=== PATIENT | male | born 1985 | race Caucasian/White ===

== ENCOUNTER 2018-08-13 09:07 | Day surgery (SDC) | payer BC, SELFPAY ==
[2018-08-13 09:37] VITALS: BP 154/95; PULSE 93; RESP 18; TEMP 35.7; O2SAT 97
[2018-08-13] MEDS: Lactated Ringers 1,000 ML 80 ML IV (09:57)
--- NOTE | 2018-08-13 11:14 | BOWEL_PTH ---
PATIENT: Chava Griffin LOC: [facility] U#:[id number] AGE/SX: 32/M ROOM: RE08/13/[address]: Tere Lyles : 1985 BED: DIS: 08/13/2018 SPEC #: [id number] RECD: 08/13/18 12:58 STATUS: UVALDO REGregg #: [id number] PAVAN: 08/13/18 11:[address]: Tere Lyles DEPT: Surgical Specimen RECD BY: Lucia Simmons ENTERED: 08/13/18 12:59 SP TYPE: Bowel OTHR DR: Tita Arreguin Tissues: 1 - BIOPSY BOWEL 2 - BIOPSY BOWEL 3 - BIOPSY BOWEL 4 - BIOPSY BOWEL 5 - BIOPSY BOWEL Procedures: GROSS AND MICRO LEVEL 4 Comments: [id number]
--- NOTE | 2018-08-13 11:23 | ENDO_ITS ---
Date of service: 08/13/18 Time of Service: 11:20 Endoscopy Report DATE OF PROCEDURE: 08/13/18 PRE-OP DIAGNOSIS: gerd POST-OP DIAGNOSIS: other (gastritis) PROCEDURE: egd w/ bx SURGEON: Tere Lyles ANESTHESIA: GETA ESTIMATED BLOOD LOSS: 2 PATHOLOGY: other COMPLICATIONS: None DISPOSITION: same day PROCEDURE DESCRIPTION: After informed consent was obtained the patient was take to the procedure room and placed in a supine position. Monitors were applied and a time out was done. The patients name, date of , procedure type, allergies to medications and metal in their body was reviewed. A bite block was placed and the patient was sedated. Once sedated and comfortable the gastroscope was advanced through the oropharynx which was grossly normal into the esophagus. The proximal and mid-esophagus were nl. In the distal esophagus there was no noted. The scope was advanced into the stomach and through the pylorus into the 3rd portion of the duodenum. The duodenum was noted to be nl. Biopsies were done. The scope was retracted back into the stomach and biopsies were done to rule out H. pylori. There were no ulcers. The scope was retroflexed. The cardia and fundus were noted to be normal. There is moderate redness at the antrum in striped fashion. bx were taken of antrum and greater curvature. There small a hiatal hernia noted. The scope was retracted back into the esophagus and biopsies were done of the GE junction to rule out Ivy's. The Z line was regular. The GE junction was at 40 cm. The scope was removed and the patient was woken up and taken back to [facility] in stable condition. Follow up: 3-4 wks
--- NOTE | 2018-08-13 11:23 | W.PM.DSUDISC ---
Discharge Plan Disposition Patient Disposition: HOME Condition: Good Discharge Details Reason For Visit: EGD Attending Provider: Tere Lyles Primary Care Provider: Tita Arreguin Home Meds and New Rx's Prescriptions: Continued quetiapine [Seroquel XR] 300 mg tablet extended release 24 hr 45 mg PO HS RF: 0 fluticasone propionate [Allergy Relief (fluticasone)] 50 mcg/actuation spray,suspension 2 spray TITO DAILY RF: 0 methylphenidate HCl 20 mg tablet 20 mg PO QID RF: 0 loratadine 10 mg capsule 10 mg PO DAILY RF: 0 pantoprazole [Protonix] 40 mg tablet,delayed release (DR/EC) 40 mg PO DAILY Qty: 30 RF: 11 sucralfate 1 gram tablet 1 gm PO QACHS Qty: 120 RF: 6 Discharge Instructions Additional Instructions: Findings:cont protonix and carafate Continue with lifestyle modifications: no alcohol, tobacco products, Aspirin or NSAID's (ibuprofen, Motrin, Naprosyn, aleve, etc), soda pop/any carbonated beverages, caffeine (including tea & chocolate), and acidic foods, (tomatoes, citrus, onions, peppermints) spicy or fried/fatty foods. Do not lie down for 30 minutes after eating, and do not eat 2 hours prior to bedtime. Avoid wearing tight fitting clothing/ belts Follow up: 3 wks w/ Dr. Lyles Please call if you develop: fevers >101.5 Nausea or Vomiting Abdominal pain that is not transient DAY SURGERY UNIT POST COLONOSCOPY INSTRUCTIONS 1. Because there will be medication in your system for the next 24 hours, you may feel a little sleepy. Your coordination will be affected. Therefore: a. Do not drive or operate dangerous equipment for 24 hours. b. Do not drink alcohol beverages for 24 hours (not even beer). c. Plan to go home and rest for the day. 2. Generally there are no restrictions on your activity after a day or so has gone by, but you may feel a bit fatigued for a few days. 3 After you arrive home you may have a light meal and return to a normal diet as you can tolerate it without feeling sick to your stomach. 4. After surgery, you may feel pain or discomfort. This should be only transient, but if it persists please contact your doctor. 5. If there are any questions regarding the findings of your procedure, please feel free to contact your doctor. 6. If you are unable to contact your doctor with a problem, contact the hospital at [phone]. 7. Continue all your regular medications unless directed otherwise. I understand the above instructions and have no questions. Signature of Patient or Responsible Adult Escort Date/Time Name of Responsible Adult Escort Signature of Nurse Date/Time Activity:: no lifting over 10#'s or strnuous acitvity x24 hrs Diet:: sm light meals today Discharge Orders Discharge Orders: Discharge Order (Routine); Ordered 08/13/18 Ordered By: Tere Lyles Discharge Data Discharge Date/Time-TO BE ENTERED AT DEPARTURE: 08/13/18 12:00 DS: Diagnosis Discharge Diagnosis (1) GERD (gastroesophageal reflux disease): Status: Chronic (2) Gastritis: Status: Acute
[2018-08-13 11:50] VITALS: BP 123/70; PULSE 78; RESP 18; TEMP 36.3; O2SAT 96
== END 2018-08-13 12:00 | disposition home or self-care (01) ==
PROVIDERS: PCP Internal Medicine; Visit Provider Surgery
PROC: 0DJ68ZZ Inspection of Stomach, Via Natural or Artificial Opening Endoscopic (ICD-10-PCS; CPT 43235; principal; 2018-08-13 10:15)
DX: K21.0 Gastro-esophageal reflux disease with esophagitis (principal); K31.89 Other diseases of stomach and duodenum; I10 Essential (primary) hypertension; K44.9 Diaphragmatic hernia without obstruction or gangrene
CPT/HCPCS: 43239; 88305

== ENCOUNTER 2020-08-01 12:09 | Day surgery (SDC) | payer BC, SELFPAY ==
--- NOTE | 2020-08-01 06:54 | W.COLOREPORT ---
Date of service: 08/01/20 Time of Service: 14:31 Colonoscopy Report Date of procedure: 08/01/20 Pre-op diagnosis general: Hx of colon polyps Post-op diagnosis procedure note: same (right sided diverticulosis) Procedure: Colonoscopy with polyepctomy Surgeon: Aleksandra Galicia Anesthesia Type: General:No Airway (ASA 2/Stewart Higgins, SARI) Estimated blood loss (mL): 5 Pathology: other (Transverse polyps x2) Complications: None Disposition: same day Indications: The patient is here for Colonoscopy pre-op. His last screening was in 2015 and was remarkable for Tubular adenomatous polyps x 2. He has no family history of colon cancer. He has not had any bowel habit changes. -Discussed colonoscopy bowel prep as well as the procedure. Discussed possible complications of the procedure to include bleeding, pain, perforation, missed small lesion/polyp, sore throat, aspiration and adverse reaction to the medications. Questions were answered to patient?s satisfaction. No guarantees were implied or given. Prep: Miralax/Dulcolax Procedure Start Time: 13:33 Procedure End Time: 13:59 Retraction Time: 21 minutes Findings: 2 small polyps removed Procedure Description: After informed consent was obtained the patient was taken to the procedure room and placed in a left decubitous position. Monitors were applied and a time out was done. The patients name, date of , procedure, allergies to medications and metal in their body was reviewed. The patient was then sedated. Once sedated and comfortable a rectal exam was done. External exam was normal. Internal exam revealed a normal sphincter tone and no palpable masses. Prostate felt large. The scope was then introduced and retro-flexed. No internal hemorrhoids, polyps or masses were identified on retro-flexion. The scope was then advanced to the cecum without difficulty. The ileocecal vlave and appendiceal orifice were identified. The prep was adequate. The scope was then slowly retracted over 21 minutes back into the rectum. Polyps were removed with cold forceps in the Transverse colon. There was moderate right sided diverticulosis noted. The scope was removed and the patient was woken up and taken back to Same day surgery in stable condition. The patient tolerated the procedure well and there were no immediate complications. Follow up: The patient should follow up in 5 years unless they develop changes in bowel habits or other new gastrointestinal complaints.
--- NOTE | 2020-08-01 06:57 | W.PM.DSUDISC ---
Discharge Plan Disposition Patient Disposition: HOME Condition: Good Discharge Details Reason For Visit: Hx of colon polyps Attending Provider: Aleksandra Galicia Primary Care Provider: Tita Arreguin Home Meds and New Rx's Prescriptions: Continued fluticasone propionate [Allergy Relief (fluticasone)] 50 mcg/actuation spray,suspension 2 spray TITO DAILY RF: 0 loratadine 10 mg capsule 10 mg PO DAILY RF: 0 pantoprazole [Protonix] 40 mg tablet,delayed release (DR/EC) 40 mg PO DAILY Qty: 30 RF: 11 methylphenidate HCl [Ritalin] 20 mg tablet 20 mg PO TID RF: 0 folic acid 1 mg tablet 3 mg PO DAILY RF: 0 lisinopril 10 mg tablet 10 mg PO DAILY RF: 0 imiquimod 5 % cream in packet 1 applic topical .3xw RF: 0 lansoprazole 30 mg capsule,delayed release(DR/EC) 30 mg PO DAILY RF: 0 methylphenidate HCl 20 mg tablet extended release 20 mg PO DAILY RF: 0 Discontinued bisacodyl [Dulcolax (bisacodyl)] 5 mg tablet,delayed release (DR/EC) 5 mg PO ONCE Qty: 4 RF: 0 polyethylene glycol 3350 17 gram/dose powder 238 g PO ONCE Qty: 238 RF: 0 Discharge Instructions Instructions: Diverticulosis (DC), Colorectal Polyps (DC) Additional Instructions: Findings: 2 polyps diverticulosis Follow up: 5 years Please call if you develop: fevers >101.5 Nausea or Vomiting Abdominal pain that is not transient Rectal bleeding that is more then a tbsp A hard abdomen and inability to pass gas DAY SURGERY UNIT POST ENDOSCOPY INSTRUCTIONS Instructions for everyone who is given Anesthesia: For your safety, please do the following for the next 24 Hours: a. Do not drive or operate dangerous equipment b. Do not drink alcohol beverages or use any recreational drugs for the first 24 hours or while taking pain medications. The medications in your body may have a reaction that can be dangerous. c. Do not make any important decisions or sign any important papers 1. Generally there are no restrictions on your activity after a day or so has gone by, but you may feel a bit fatigued for a few days. 2. After you arrive home you may have a light meal and return to a normal diet as you can tolerate it without feeling sick to your stomach. 3. After surgery, you may feel pain or discomfort. This should be only transient, but if it persists please contact your doctor. 4. If there are any questions regarding the findings of your procedure, please feel free to contact your doctor. 6. If you are unable to contact your doctor with a problem, contact the hospital at [phone]. 7. Continue all your regular medications unless directed otherwise. I understand the above instructions and have no questions. Signature of Patient or Responsible Adult Escort Date/Time Name of Responsible Adult Escort Signature of Nurse Date/Time Activity:: Activity as Tolerated Diet:: High Fiber diet Discharge Orders Discharge Orders: Discharge Order (Routine); Ordered 08/01/20 Ordered By: Aleksandra Galicia
[2020-08-01 12:31] VITALS: BP 142/105; PULSE 93; RESP 18; TEMP 36.5; O2SAT 96
--- NOTE | 2020-08-01 12:44 | ANES.PREOP_ITS ---
General Info Date of Service Date Performed: 08/01/20 Height: 6 ft 4 in Weight: 153.9 kg Body Mass Index (BMI): 41.3 Surgical Procedure: Operation Date: 08/01/20 13:35 Proposed Procedures Side Surgeon p Colonoscopy Aleksandra Galicia MD Meds Allergies and Home Medications Allergies Allergy/AdvReac Type Severity Reaction Status Date / Time No Known Allergies Allergy Verified 08/01/20 12:35 Home Medication Medication Instructions Recorded fluticasone propionate 50 2 spray TITO DAILY 07/28/18 mcg/actuation nasal spray,suspension loratadine 10 mg capsule 10 mg PO DAILY 07/28/18 pantoprazole 40 mg tablet,delayed 40 mg PO DAILY #30 tab 08/02/18 release folic acid 1 mg tablet 3 mg PO DAILY tab 04/27/20 imiquimod 5 % topical cream packet 1 applic TOPICAL .3xw ea 04/27/20 lansoprazole 30 mg capsule,delayed 30 mg PO DAILY 04/27/20 release lisinopril 10 mg tablet 10 mg PO DAILY 04/27/20 methylphenidate HCl 20 mg tablet 20 mg PO TID 04/27/20 methylphenidate HCl 20 mg PO DAILY 07/30/20 Current Visit Medications: Current Medications Generic Name Dose Route Start Last Admin Trade Name Freq PRN Reason Stop Dose Admin Hyoscyamine Sulfate 0.125 mg 08/01/20 06:59 Hyoscyamine 0.125 Mg Sl/Oral/Chew SL DIRECTED PRN Ringer's Solution 1,000 mls @ 80 mls/hr 08/01/20 06:00 IV 08/30/20 23:59 INFUSION [facility] IV Miscellaneous Supplies 1 each 08/01/20 06:00 Iv Access IV 08/30/20 23:59 DIRECTED CONSTANZA Ondansetron HCl 4 mg 08/01/20 06:59 Ondansetron 4 Mg/2 Ml Vial IVP Q4H PRN PRN Nausea / Vomiting Sodium Chloride 0 ml 08/01/20 06:00 Normal Saline Flush 10 Ml Syr IV 08/30/20 23:59 PRN PRN Sodium Chloride 0 ml 08/01/20 06:00 Normal Saline 10 Ml Vial IJ 08/30/20 23:59 DIRECTED PRN Sterile Water 0 ml 08/01/20 06:00 Water,Injection,Sterile 10 Ml Vial IJ 08/30/20 23:59 DIRECTED PRN PFSH Active Problems Active Problems: Problem Status Onset Code History of adenomatous polyp of colon Z86.010 Hypogonadism in male E29.1 Condyloma acuminata A63.0 Screening for colon cancer Z12.11 Gastritis K29.70 GERD (gastroesophageal reflux disease) K21.9 Medical History Medical History Abdominal pain post prandial Allergic rhinitis Chronic GERD CTS (carpal tunnel syndrome) Gastritis EGD 08/13/[address] Tere Lyles, [facility], gastritis, started protonix and carafate. Repeat EGD as needed. mg GERD (gastroesophageal reflux disease) History of fracture ORIF lt hand HTN (hypertension) Hyperglycemia Hyperlipidemia Neuropathy Restless leg Surgical History Surgical History History of colonoscopy History of recent maxillofacial surgery metal plate in jaw Personal history of spine surgery Tobacco Smoking/Tobacco Use Status: Current every day Tobacco Type: cigarettes Smoking packs per day: 1 Years smoked: 5 Alcohol Alcohol Intake: current Alcohol intake frequency: 3 or more drinks per day Alcohol type: wine and hard liquor Details: Consumes a little less than a fifth 5 days/wk after work Substance Use Substance use: Never Substance use type: does not use Vital Signs and Lab Results Vital Signs Most Recent Vital Signs in EMR: Most Recent Vital Signs Temp Pulse Resp BP Pulse Ox 36.5 C 93 H 18 142/105 H 96 08/01/20 12:31 08/01/20 12:31 08/01/20 12:31 08/01/20 12:31 08/01/20 12:31 Lab Results Blood Type / Crossmatch: No Data to Display Complete Blood Count: No Data to Display Complete Metabolic Panel: No Data to Display Liver Function Panel: No Data to Display Coagulation Panel: No Data to Display Cardiac Panel: No Data to Display Arterial Blood Gas: No Data to Display Venous Blood Gas: No Data to Display Pancreas Panel: No Data to Display Thyroid Panel: No Data to Display Infectious Disease: No Data to Display Blood Cultures: No Data to Display Toxicology Panel: No Data to Display Anesthesia Assessment and Plan Anesthesia History Personal History: No History of Anesthesia Complications Family History: No Family History of Anesthesia Complications Exercise Tolerance Exercise Tolerance: Metabolic Equivalents>4 Pertinent Negatives Pertinent Negatives: No Symptoms of GERD Cardiac & Pulmonary Exam Cardiac Exam: Normal S1/S2 Heart Sounds Pulmonary Exam: Clear Bilateral Breath Sounds Airway Exam Known Difficult Airway: No Mallampati Class: 2 Mouth Opening: Normal (> 3cm) Thyromental Distance: Greater than 3 cm Neck Range of Motion: Full ROM Neck Circumference: Thick Teeth Condition: Normal Dentition ASA Classification ASA Score: ASA 2 Emergency Case?: No NPO Status NPO Status: NPO Clears >2 hours, Solids >8 hours Anesthesia Plan Anesthesia Technique: General Anesthesia Airway Planned: Natural Airway Monitors Used: Standard Monitors
[2020-08-01] MEDS: Lactated Ringers 1,000 ML 80 ML IV (13:15)
--- NOTE | 2020-08-01 13:48 | BOWEL_PTH ---
PATIENT: Chava Griffin LOC: [facility] U#:[id number] AGE/SX: 34/M ROOM: RE08/01/[address]: Aleksandra Galicia MD : 1985 BED: DIS: 08/01/2020 SPEC #: [id number] RECD: 08/01/20 17:37 STATUS: UVALDO REQ #: [id number] PAVAN: 08/01/20 13:[address]: Aleksandra Galicia DEPT: Surgical Specimen RECD BY: Liza Grijalva ENTERED: 08/01/20 17:37 SP TYPE: Bowel OTHR DR: Tita Arreguin Tissues: 1 - BIOPSY BOWEL Procedures: GROSS AND MICRO LEVEL 4 Comments: [id number]
[2020-08-01 14:07] VITALS: BP 133/86; PULSE 83; RESP 18; TEMP 36.2; O2SAT 94
--- NOTE | 2020-08-01 14:07 | W.ANESPOSTOP ---
Postoperative Evaluation Date, Time and Location Date Performed: 08/01/20 Time Performed: 14:10 Patient Location: Day Surgery Unit Vital Signs Most Recent Imported Vital Signs: Most Recent Vital Signs Temp Pulse Resp BP Pulse Ox 36.5 C 93 H 18 142/105 H 96 08/01/20 12:31 08/01/20 12:31 08/01/20 12:31 08/01/20 12:31 08/01/20 12:31 Most Recent Manually Entered Vital Signs: Adult Blood Pressure: 133/86 Heart Rate: 83 Respirations: 12 Oxygen Saturation (%): 97 Temperature (C): 36.3 C Pain Score (0-10 Scale): 0 Pain Score Most Recent Pain Score: Most Recent Pain Score Pain Level 0 08/01/20 12:31 Assessment Mental Status: Awake (Alert & Oriented to Patient Baseline) Airway and Respiratory Function: Patent airway with normal (patient baseline) respiratory exam Cardiovascular Function: Hemodynamically Stable Hydration Status: Adequately Hydrated Nausea & Vomiting: No Nausea or Vomiting Pain: Pt. Denies Any Pain Peripheral Nerve Block: Patient did not receive a nerve block Teaching Patient Teaching: Discussed Safe Use of Pain Medication Given Likely or Known MOHSEN and Discussed the importance of using CPAP/BiPAP during any sleep period
[2020-08-01 14:12] VITALS: BP 133/86; PULSE 83; RESP 12; TEMPC 36.3; O2SAT 97; BMI 41.3
[2020-08-01 14:35] VITALS: BP 135/77; PULSE 74; RESP 18; TEMP 36.3; O2SAT 95
== END 2020-08-01 15:00 | disposition home or self-care (01) ==
LOC: SUR 12:09
PROVIDERS: PCP Internal Medicine; Visit Provider Surgery
PROC: 0DJD8ZZ Inspection of Lower Intestinal Tract, Via Natural or Artificial Opening Endoscopic (ICD-10-PCS; CPT 45378; principal; 2020-08-01 13:30)
DX: Z12.11 Encounter for screening for malignant neoplasm of colon (principal); D12.3 Benign neoplasm of transverse colon; Z86.010 Personal history of colon polyps; K21.9 Gastro-esophageal reflux disease without esophagitis; I10 Essential (primary) hypertension; F17.210 Nicotine dependence, cigarettes, uncomplicated; K57.30 Diverticulosis of large intestine without perforation or abscess without bleeding
CPT/HCPCS: 45380; 88305; J2001

== ENCOUNTER 2022-08-15 08:27 | Day surgery (SDC) | payer BC, SELFPAY ==
[2022-08-15] VITALS (11 sets, daily range): BP systolic 129–171; BP diastolic 57–102; PULSE 61–75; RESP 13–24; TEMP 36.3–36.7; O2SAT 91–98; BMI 39.9
--- NOTE | 2022-08-15 07:11 | W.PM.PROGNOT ---
Date of Service Date of service: 08/15/22 Time of Service: 10:36 Assessment and Plan Assessment and plan (1) Biliary dyskinesia: Status: Acute Assessment and plan: Monika is here today for laparoscopic cholecystectomy for biliary dyskinesia. He is doing well. We reviewed the risks, benefits and complications of the procedure again. He has no questions about the complications. He has a good understanding of the procedure and the complications. He wishes to proceed with laparoscopic cholecystectomy. Risks, benefits, complications were reviewed with the patient in the office. Complications include but are not limited to bleeding, infection, injury to stomach, small bowel and large bowel, injury to the pancreas, injury to the common bile duct necessitating drainage and referral to tertiary center for repair, bile leak, adverse reactions to the medications, complications of intubation including a sore throat or injury to the uvula, [place], stroke and even . Questions were entertained and answered to her satisfaction and she wished to proceed. No guarantees were given or implied. Seed with laparoscopic cholecystectomy possible open possible intraoperative cholangiogram. Subjective Subjective Interval history since last seen: Chava is in same-day surgery today for a laparoscopic cholecystectomy. He is doing well except that he is nervous. He has had no new symptoms since I saw him in the office last week. He has not had any nausea or vomiting today. No cold symptoms. Exam Const General: cooperative, comfortable and no acute distress [facility] Head: normocephalic and atraumatic Resp Effort & Inspection: normal respiratory effort Auscultation: clear to auscultation bilaterally Cardio Rate: regular rate Rhythm: regular rhythm GI Inspection: normal to inspection and obesity Palpation: soft and nontender Time Spent with Patient Time Spent with Patient: <25 minutes Time was spent: counseling the patient
--- NOTE | 2022-08-15 07:18 | W.PM.OP ---
Date of service: 08/15/22 Time of Service: 12:20 Operative Note Operative Note DATE OF PROCEDURE: 08/15/22 PRE-OP DIAGNOSIS: Biliary Dyskinesia POST-OP DIAGNOSIS: same PROCEDURE: lap. Lupe SURGEON: Aleksandra Galicia GAS WELDING MACHINE OPERATOR: nAdrew Trammell ANESTHESIA TYPE: Local By Surgeon and General LMA/ETT Refer to Anesthesia Record ESTIMATED BLOOD LOSS: 25 PATHOLOGY: other (Gallbladder) COMPLICATIONS: None Patient was transported to: PACU Patient's condition: stable Indications: Chava is a pleasant 36 year old male with Biliary Dyskinesia. He had symptoms that started back in 2019. He was doing OK up until the last few months when his pain became worse. he now has pain everytime he eats. His HIDA scan showed a low EF, this is consistent with Bilairy Dyskinesia. We discussed the procedure in detail using a pamphlet with pictures. We discussed the pathophysiology.? Risks, benefits, complications were reviewed with the patient in the office.? Complications include but are not limited to bleeding, infection, injury to stomach, small bowel and large bowel, injury to the pancreas, injury to the common bile duct necessitating drainage and referral to tertiary center for repair, bile leak, adverse reactions to the medications, complications of intubation including a sore throat or injury to the uvula, [place], stroke and even .? Questions were entertained and answered to his satisfaction. He seemed to have a good understanding of the risk and complications involved with surgery and he wished to proceed.? No guarantees were given or implied. Findings: Normal appearing GB Procedure Description: After informed consent was obtained the patient was brought to the operating room, placed in a supine position and monitors were applied. SCDs were applied to his lower extremities and he was placed under general anesthesia and intubated without difficulty. His abdomen was clipped of hair. His abdomen was then prepped and draped in a sterile fashion using ChloraPrep. At this point a timeout was done and the patient's name, date of , procedure type, allergies to medications, metal in her body, antibiotic and DVT prophylaxis, and fire risk was assessed. Next 0.25% Bupivocaine was injected just above the umbilicus into the dermis and subcutaneous tissue. A 5 mm incision was made with an 11 blade. The skin next to the incision was grasped with penetrating towel clamps and while pulling up on the skin a 5 mm port was placed under direct visualization. The abdomen was insuflated and then 3 more ports were placed. A 12 mm port was placed in the subxiphoid area and two 5 mm ports were placed in the right upper quadrant. The liver was inspected and looked normal. The patient's bed was then turned to the left and her head was brought up. The gallbladder was grasped at the body and pushed towards the right shoulder, this allowed me to visualize the neck of the gallbladder. The neck was grasped and pulled towards the right flank and down allowing me to visualize the lymph node. Using a [place] dissector with cautery the lymph node was gently dissected away from the tissues and the fatty tissue was also dissected away. The cystic duct was identified it was normal in size. The duct was dissected 360 degrees using the [place] dissector in order for me to visualize its entrance into the gallbladder. Liver was noted behind it. There were no other structures right behind. Critical view was achieved. 3 clips were placed one proximal and 2 distal and the cystic duct was cut. The cystic artery was then identified and dissected 360 degrees. It was located just medial to the cystic duct. It was visualized going into the gallbladder. Once dissected 3 more clips were placed one proximal and 2 distal and the artery was cut. Using the hook dissector the gallbladder was then dissected away from the liver bed and placed into an Endo Catch bag and pulled through the 12 mm port site. The 12 mm port was placed back into the abdomen under direct visualization. The liver bed was inspected no bleeding was noted. The abdomen was then irrigated with a liter of normal saline until the effluent was clear. Once all the fluid was suctioned out, the 12 mm and the 2 right upper quadrant ports were removed under direct visualization and no bleeding was noted from the fascia. The abdomen was deflated completely and lastly the umbilical port was removed. The skin was cleaned and the incisions were closed with 4-0 Vicryl. The skin was dried and skin affix was applied over the closed incisions. Needle, instrument and sponge counts were correct at the end of the case. At this point the patient was woken up, extubated and taken back to recovery in stable condition. There were no immediate complications.
--- NOTE | 2022-08-15 07:19 | PDOC.DSDIS_ITS ---
Date of service: 08/15/22 Time of Service: 14:03 Discharge Plan Disposition Patient Disposition: Home Condition: Stable Discharge Details Reason For Visit: yobani Andrade Attending Provider: Aleksandra Galicia Primary Care Provider: Tita Arreguin Home Meds and New Rx's Prescriptions: New tramadol 50 mg tablet 50 mg PO Q6H PRNQty: 14 0RF ondansetron HCl 4 mg tablet 4 mg PO Q4H PRN (Reason: nausea and vomiting) Qty: 14 0RF Continued metoprolol succinate 100 mg tablet extended release 24 hr 100 mg PO DAILY fluticasone propionate [Allergy Relief (fluticasone)] 50 mcg/actuation spray,suspension 2 spray TITO DAILY loratadine 10 mg capsule 10 mg PO DAILY methylphenidate HCl [Ritalin] 20 mg tablet 20 mg PO TID lisinopril 10 mg tablet 10 mg PO DAILY levothyroxine 75 mcg tablet 75 mcg PO DAILY Patient Comments: TAKE 1 TABLET (75 MCG) BY MOUTH ONCE DAILY meloxicam 7.5 mg tablet Patient Comments: TAKE 1 TABLET BY MOUTH TWICE DAILY NEEDED Discharge Instructions Instructions: Laparoscopic Cholecystectomy (DC) Additional Instructions: Activity at Home after surgery: 1. Make sure you walk outside at least 4 times per day 2. You should be able to climb a flight of stairs 3. No driving while in pain or taking pain medications 4. No strenuous activity or heavy lifting for 2 weeks (laparoscopic surgery) Diet, Nutrition, & wound healin. Avoid alcohol until after you are recovered from your surgery 2. Make sure to eat plenty of lean protein (meat, fish, eggs, cottage cheese, beans) 3. Eat a variety of fruits and vegetables. Eat plenty of high fiber foods to avoid constipation. 4. Drink plenty of liquids to stay hydrated and avoid constipation Pain Medications: 1. Tylenol 650mg every 6 hours as needed and Ibuprofen 600 mg every 6 hours as needed. You may alternate between the 2 medications every 3 hours 2. If a narcotic has been prescribed take as directed only for breakthrough pain For Constipation: 1. Take Milk of Magnesia or MiraLax as needed for constipation Other: 1. You may shower daily. Do not scrub the incisions 2. Do not soak the incisions for 1 week 3. You may alternate ice and heat as needed for pain and swelling Wound Care: 1. Keep the incisions clean and dry Please call our office if you develop: 1. Fevers >101.5 2. Nausea or Vomiting 3. Worsening pain 4. Redness and thick discharge from the wounds If after hours please call the Hospital at and ask to speak to the on-call surgeon Referrals: Aleksandra Galicia MD [ [facility] STAFF PHYSICIAN] - 08/26/22 2:30 pm Activity:: see above Shower/Bathe:: 24 hours Diet:: low fat Discharge Orders Discharge Orders: Discharge Order (Routine); Ordered 08/15/22 Ordered By: Aleksandra Galicia DS: Diagnosis Discharge Diagnosis (1) Biliary dyskinesia: Status: Acute Asessment and Plan: The patient is doing well post-op from their Laparoscopic Cholecysectomy surgery.? They are having no nausea or vomiting. They are tolerating liquids and a snack. The pt is not having any chest pain or SOB.? Their pain is adequately controlled. They have been able to urinate.? ?HEENT:? no eye pain/drainage/redness/swelling. Mild sore throat ?Cardio- NSR, no chest pain, BP stable- see VS record ?Pulm: no sob or productive cough. No hemoptysis ?Incision- dressing is c/d/i w/ no excessive bleeding or drainage ?I discussed with the patient the findings at the time of surgery and the patient?s progress. ?We reviewed expectations at home; what the patient could expect for recovery time, and in the post-operative period.? We discussed the importance of walking to avoid blood clots and pneumonia.? We discussed and reviewed the patient's post-operative wound care and dressing needs.?? We reviewed their step-rodgers pain management plan, Rx called to the pharmacy of their choice.? We reviewed activity and limitations-see discharge instructions. We reviewed warning signs, and when to seek medical attention- see d/c instructions.?? Patient was given a postoperative follow-up appointment. Patient verbalized understanding of their postoperative instructions, how do to take care of themselves and their incision, and the pain management plan. Please see discharge instructions.?
[2022-08-15] MEDS: Lactated Ringers 1,000 ML 80 ML IV (08:46)
--- NOTE | 2022-08-15 09:34 | W.ANESPRE ---
General Info Date of Service Date Performed: 08/15/22 Height: 6 ft 4 in Weight: 148.9 kg Body Mass Index (BMI): 39.9 Surgical Procedure: Operation Date: 08/15/22 09:40 Proposed Procedure Side Surgeon p Cholecystectomy Laparoscopic Aleksandra Galicia MD Meds Allergies and Home Medications Allergies Allergy/AdvReac Type Severity Reaction Status Date / Time No Known Allergies Allergy Verified 08/15/22 08:53 Home Medication Medication Instructions Recorded fluticasone propionate 50 2 spray intranasal DAILY 07/28/18 mcg/actuation nasal spray,suspension (Allergy Relief (fluticasone)) loratadine 10 mg capsule 10 mg PO DAILY 07/28/18 lisinopril 10 mg tablet 10 mg PO DAILY 04/27/20 methylphenidate HCl 20 mg tablet 20 mg PO TID 04/27/20 (Ritalin) metoprolol succinate 100 mg 100 mg PO DAILY 08/06/22 tablet,extended release 24 hr levothyroxine 75 mcg tablet 75 mcg PO DAILY 08/15/22 meloxicam 7.5 mg tablet mg 08/15/22 Current Visit Medications: Current Medications Generic Name Dose Route Start Last Admin Trade Name Freq PRN Reason Stop Dose Admin Ringer's Solution 1,000 mls @ 80 mls/hr 08/15/22 06:00 08/15/22 08:46 IV 09/13/22 23:59 80 mls/hr INFUSION [facility] Administration Ondansetron HCl 4 mg/ Sodium 52 mls @ 200 mls/hr 08/15/22 07:28 Chloride IVPB 09/14/22 07:27 Q6H PRN PRN IV Miscellaneous Supplies 1 each 08/15/22 06:00 Iv Access IV 09/13/22 23:59 DIRECTED [facility] Sodium Chloride 0 ml 08/15/22 06:00 Normal Saline Flush 10 Ml Syr IV 09/13/22 23:59 PRN PRN Sodium Chloride 0 ml 08/15/22 06:00 Normal Saline 10 Ml Vial IJ 09/13/22 23:59 DIRECTED PRN Sterile Water 0 ml 08/15/22 06:00 Water,Injection,Sterile 10 Ml Vial IJ 09/13/22 23:59 DIRECTED PRN Tramadol HCl 50 mg 08/15/22 07:28 Tramadol 50 Mg Tab PO 09/14/22 07:27 Q6H PRN PRN Pain PFSH Active Problems Active Problems: Problem Status Onset Code GERD (gastroesophageal reflux disease) K21.9 Gastritis K29.70 Screening for colon cancer Z12.11 Condyloma acuminata A63.0 Hypogonadism in male E29.1 History of adenomatous polyp of colon Z86.010 Tubular adenoma ~07/2020 D36.9 Recurrent sinusitis J32.9 Chronic ethmoidal sinusitis J32.2 Cholecystitis K81.9 Right upper quadrant pain R10.11 Biliary dyskinesia K82.8 Medical History Medical History Abdominal pain post prandial Allergic rhinitis Chronic GERD CTS (carpal tunnel syndrome) History of fracture ORIF lt hand HTN (hypertension) Hyperglycemia Hyperlipidemia Hypothyroidism Neuropathy Restless leg Surgical History Surgical History History of colonoscopy History of colonoscopy (~07/2020) History of recent maxillofacial surgery metal plate in jaw for severe underbite Personal history of spine surgery Tobacco Smoking/Tobacco Use Status: Current every day Tobacco Type: cigarettes Smoking packs per day: 1 Years smoked: 5 Alcohol Alcohol Intake: current Alcohol intake frequency: 3 or more drinks per day Alcohol type: wine and hard liquor Details: Consumes a little less than a fifth 5 days/wk after work Substance Use Substance use: Never Substance use type: does not use Details: last alcohol t-2 Vital Signs and Lab Results Vital Signs Most Recent Vital Signs in EMR: Most Recent Vital Signs Temp Pulse Resp BP Pulse Ox 36.6 C 71 16 171/102 H 97 08/15/22 08:58 08/15/22 08:58 08/15/22 08:58 08/15/22 08:58 08/15/22 08:58 Vital Signs Comment Vital Signs Comment:: Temp Pulse Resp BP Pulse Ox 36.6 C 71 16 171/102 H 97 08/15/22 08:58 08/15/22 08:58 08/15/22 08:58 08/15/22 08:58 08/15/22 08:58 Lab Results Blood Type / Crossmatch: No Data to Display Complete Blood Count: No Data to Display Complete Metabolic Panel: No Data to Display Liver Function Panel: No Data to Display Coagulation Panel: No Data to Display Cardiac Panel: No Data to Display Arterial Blood Gas: No Data to Display Venous Blood Gas: No Data to Display Pancreas Panel: No Data to Display Thyroid Panel: No Data to Display Infectious Disease: No Data to Display Blood Cultures: No Data to Display Toxicology Panel: No Data to Display Anesthesia Assessment and Plan Anesthesia History Personal History: No History of Anesthesia Complications Family History: No Family History of Anesthesia Complications Exercise Tolerance Exercise Tolerance: Metabolic Equivalents>4 Pertinent Negatives Pertinent Negatives: No Symptoms of GERD, No Major Cardiovascular Symptoms or Complaints and No Major Pulmonary Symptoms or Complaints Cardiac & Pulmonary Exam Cardiac Exam: Normal S1/S2 Heart Sounds Pulmonary Exam: Clear Bilateral Breath Sounds Implantable Cardiac Device Does patient have a Pacemaker or an ICD?: No Airway Exam Known Difficult Airway: No Mallampati Class: 2 Mouth Opening: Normal (> 3cm) Thyromental Distance: Greater than 3 cm Neck Range of Motion: Full ROM Neck Circumference: Thick Teeth Condition: Normal Dentition ASA Classification ASA Score: ASA 3 Emergency Case?: No NPO Status NPO Status: NPO Clears >2 hours, Solids >8 hours Anesthesia Plan Resuscitation Status: Full Code Anesthesia Technique: General Anesthesia Airway Planned: Endotracheal Tube Monitors Used: Standard Monitors
[2022-08-15] MEDS: ceFAZolin 3,000 MG in Normal Saline 100 ML 200 MG IVPB (11:42)
[2022-08-15] MEDS: Bupivacaine 0.25% Pres-Free 30 ML VIAL (11:57)
--- NOTE | 2022-08-15 12:27 | GB_PTH ---
PATIENT: Chava Griffin LOC: [facility] U#:[id number] AGE/SX: 36/M ROOM: RE08/15/[address]: Aleksandra Galicia MD : 1985 BED: DIS: 08/15/2022 SPEC #: [id number] RECD: 08/18/22 12:51 STATUS: UVALDO ESPINOZA #: [id number] PAVAN: 08/15/22 12:[address]: Aleksandra Galicia DEPT: Surgical Specimen RECD BY: Liza Grijalva ENTERED: 08/18/22 12:51 SP TYPE: GB OTHR DR: Tita Arreguin Tissues: 1 - GALLBLADDER Procedures: GROSS AND MICRO LEVEL 3 Comments: [id number]
[2022-08-15] MEDS: fentaNYL 100 MCG/2 ML VIAL IVP (12:44)
[2022-08-15] MEDS: Droperidol 5 MG/2 ML VIAL 0.625 MG IVP ×2 (12:56→13:21)
--- NOTE | 2022-08-15 13:31 | W.ANESPOSTOP ---
Postoperative Evaluation Date, Time and Location Date Performed: 08/15/22 Time Performed: 13:32 Patient Location: PACU Vital Signs Most Recent Imported Vital Signs: Most Recent Vital Signs Temp Pulse Resp BP Pulse Ox 36.7 C 61 18 141/61 H 98 08/15/22 13:24 08/15/22 13:24 08/15/22 13:24 08/15/22 13:24 08/15/22 13:24 Pain Score Most Recent Pain Score: Most Recent Pain Score Pain Level 5 08/15/22 12:55 Assessment Mental Status: Awake (Alert & Oriented to Patient Baseline) Airway and Respiratory Function: Patent airway with normal (patient baseline) respiratory exam Cardiovascular Function: Hemodynamically Stable Hydration Status: Adequately Hydrated Nausea & Vomiting: No Nausea or Vomiting Pain: Pain is tolerable per patient Peripheral Nerve Block: Patient did not receive a nerve block
== END 2022-08-15 15:06 | disposition home or self-care (01) ==
PROVIDERS: PCP Internal Medicine; Visit Provider Surgery
PROC: 0FT44ZZ Resection of Gallbladder, Percutaneous Endoscopic Approach (ICD-10-PCS; CPT 47562; principal; 2022-08-15 09:30)
DX: K82.8 Other specified diseases of gallbladder (principal); K21.9 Gastro-esophageal reflux disease without esophagitis; I10 Essential (primary) hypertension; R73.9 Hyperglycemia, unspecified
CPT/HCPCS: 47562; 88304; J0690; J1100; J1790; J1885; J2250; J2405; J2704; J3010

== ENCOUNTER 2023-09-30 08:46 | Day surgery (SDC) | payer BC, SELFPAY ==
--- NOTE | 2023-09-29 14:14 | W.PM.DSUDISC ---
Date of service: 09/30/23 Time of Service: 10:58 Discharge Plan Disposition Patient Disposition: Home Condition: Good Discharge Details Reason For Visit: Diagnostic colonoscopy Attending Provider: Cornelius Jim Primary Care Provider: Tita Arreguin Home Meds and New Rx's Prescriptions: Continued metoprolol succinate 100 mg tablet extended release 24 hr 200 mg PO DAILY fluticasone propionate [Allergy Relief (fluticasone)] 50 mcg/actuation spray,suspension 2 spray TITO DAILY loratadine 10 mg capsule 10 mg PO DAILY omeprazole 40 mg capsule,delayed release(DR/EC) 40 mg PO DAILY montelukast 10 mg tablet 10 mg PO DAILY famotidine 20 mg tablet 20 mg PO DAILY methylphenidate HCl [Ritalin] 20 mg tablet 20 mg PO TID lisinopril 10 mg tablet 20 mg PO DAILY Cholestyramine Light 4 gram powder PO DAILY levothyroxine 75 mcg tablet 75 mcg PO DAILY Patient Comments: TAKE 1 TABLET (75 MCG) BY MOUTH ONCE DAILY meloxicam 7.5 mg tablet 15 mg PO DAILY Patient Comments: TAKE 1 TABLET BY MOUTH TWICE DAILY NEEDED Discontinued polyethylene glycol 3350 17 gram/dose powder 238 g PO ONCE Qty: 238 0RF Rx Instructions: take per colonoscopy instructions bisacodyl [Dulcolax (bisacodyl)] 5 mg tablet,delayed release (DR/EC) 5 mg PO ONCE Qty: 4 0RF Rx Instructions: take per colonoscopy instructions polyethylene glycol 3350 17 gram/dose powder 238 g PO ONCE Qty: 238 0RF Rx Instructions: take per colonoscopy instructions bisacodyl [Dulcolax (bisacodyl)] 5 mg tablet,delayed release (DR/EC) 5 mg PO ONCE Qty: 4 0RF Rx Instructions: take per colonoscopy instructions Discharge Instructions Instructions: Diverticulosis, High-fiber diet Additional Instructions: Monika, we are able to complete your colonoscopy today without any difficulty. Hopefully you are comfortable. I did not see any signs of tumors, polyps, or anything particularly worrisome to the naked eye. You do have some diverticulosis, and, interestingly, your diverticula are little more on the right side compared to the left side. This is less common, but certainly not out of the ordinary. When diverticula become inflamed, we call that diverticulitis. This could explain some of the findings described on your CT scan. Based on the appearance of the colon today, I am skeptical that this is Crohn's disease or ulcerative colitis. I did do some biopsies along the length of your colon to see if that will shed any light on the diagnosis. I did attach some general information here about approaches to diverticulosis. Generally, I recommend the patient's consume quite a bit of dietary fiber, stay well-hydrated, and avoid symptoms of constipation to help prevent flareups of the diverticulitis. He will take about a week or 2 for me to get the results of all the biopsies, but once I have those, we will be in touch with any other recommendations. 1. If tolerated, consume a soft, low fiber diet for 1-2 days. 2. Do not drive, drink alcohol, operate machinery, make critical decisions, or do activities that require coordination or balance for 24 hours. 3. Because air was put into your colon during the procedure, expelling air from your rectum (passing gas or farting) is normal. 4. You may not have a bowel movement for 1-3 days because of the colonoscopy prep. This is normal. 5. Go directly to the emergency room if you notice any of the following: Develop chills (warm to touch), or if you have a thermometer and your temperature is above 101 Difficulty breathing or difficultly swallowing Persistent vomiting Severe abdominal pain, other than gas cramps Severe chest pain Black, tarry stools Any bleeding ? exceeding one tablespoon 6. Call your physician if the site where your intravenous was started becomes red, swollen, painful, and warm to touch. 7. Your physician has reviewed your pre-procedure medications. Please continue to take those medications as previously ordered. You will be given specific information/education regarding any changes to your medications before leaving. Activity:: Activity as Tolerated Diet:: As Tolerated Discharge Orders Discharge Orders: Discharge Order (Routine); Ordered 09/29/23 Ordered By: Cornelius Jim DS: Diagnosis Discharge Diagnosis (1) Colitis: Status: Acute
--- NOTE | 2023-09-29 14:19 | COLE_ITS ---
Date of service: 09/30/23 Time of Service: 11:01 Colonoscopy Report Date of procedure: 09/30/23 Pre-op diagnosis general: Colitis Post-op diagnosis procedure note: other (Diverticulosis) Procedure: Colonoscopy with random colon biopsies Surgeon: Cornelius Jim Anesthesia Type: General:No Airway Estimated blood loss (mL): 15 Pathology: other (Random colon biopsies) Complications: None Disposition: same day Indications: Psychiatry is a 37-year-old woman with a recent episode of colitis who needs a diagnostic colonoscopy Prep: Miralax/Dulcolax Procedure Start Time: 10:36 Procedure End Time: 10:54 Retraction Time: 9 Findings: Diverticulosis Procedure Description: After the induction of anesthesia, and with the patient in left lateral decubitus position, I began by performing an external anorectal exam.? Perineum and skin were normal, as was the anal verge.? There was no evidence of external hemorrhoids.? Next, I performed a digital rectal exam.? I did not appreciate any abnormal findings.? Next, I advanced a colonoscope into the rectal vault.? I performed retroflexion.? This appeared normal.? Using insufflation, I then advanced the colonoscope beyond the rectal folds and into the sigmoid colon before advancing towards the cecum.? The scope was noted to be in the cecum by identification of the ileocecal valve and appendiceal orifice.? I was unable to cannulate the terminal ileum, but I did not see any signs of acute inflammation anywhere near it. I then began withdrawing the colonoscope using repeated irrigation as necessary for full evaluation of the colonic mucosa. There were diverticula within the cecum, extending into the ascending colon. Mucosa was otherwise normal-appearing. I did perform random biopsies in all segments of the large intestine using cold forceps with no worrisome bleeding. There were some occasional diverticula in the transverse, descending and sigmoid colon's as well. Once the scope was withdrawn to the level of the rectum, great care was taken to examine portions of the rectal folds.? Finally, the scope was withdrawn and the patient was brought to the same-day surgery recovery unit as the anesthetic wore off. ?The findings and instructions were shared with the patient prior to discharge. [place] Bowel Prep [place] Bowel Prep Right Colon: 2 Left Colon: 3 Transverse Colon: 3 Total Score: 8
--- NOTE | 2023-09-29 19:21 | ANES.PREOP_ITS ---
General Info Date of Service Date Performed: 09/30/23 Height: 6 ft 4 in Weight: 143 kg Body Mass Index (BMI): 38.3 Surgical Procedure: Operation Date: 09/30/23 10:35 Proposed Procedure Side Surgeon trisha Jim MD Meds Allergies and Home Medications Allergies Allergy/AdvReac Type Severity Reaction Status Date / Time No Known Allergies Allergy Verified 08/26/22 14:35 Home Medication Medication Instructions Recorded fluticasone propionate 50 2 spray intranasal DAILY 07/28/18 mcg/actuation nasal spray,suspension (Allergy Relief (fluticasone)) loratadine 10 mg capsule 10 mg PO DAILY 07/28/18 methylphenidate HCl 20 mg tablet 20 mg PO TID 04/27/20 (Ritalin) metoprolol succinate 100 mg 200 mg PO DAILY 08/06/22 tablet,extended release 24 hr levothyroxine 75 mcg tablet 75 mcg PO DAILY 08/15/22 meloxicam 7.5 mg tablet 15 mg PO DAILY 08/15/22 cholestyramine-aspartame 4 gram pwd PO DAILY 07/22/23 oral powder (Cholestyramine Light) lisinopril 10 mg tablet 20 mg PO DAILY 07/22/23 famotidine 20 mg tablet 20 mg PO DAILY 09/01/23 montelukast 10 mg tablet 10 mg PO DAILY 09/01/23 omeprazole 40 mg capsule,delayed 40 mg PO DAILY 09/01/23 release Current Visit Medications: Current Medications Generic Name Dose Route Start Last Admin Trade Name Freq PRN Reason Stop Dose Admin Hyoscyamine Sulfate 0.125 mg 09/29/23 14:20 Hyoscyamine 0.125 Mg Sl/Oral/Chew SL 10/29/23 14:19 DIRECTED PRN Ringer's Solution 1,000 mls @ 80 mls/hr 09/30/23 06:00 IV 10/29/23 23:59 INFUSION [facility] IV Miscellaneous Supplies 1 each 09/30/23 06:00 Iv Access IV 10/29/23 23:59 DIRECTED [facility] Ondansetron HCl 4 mg 09/29/23 14:20 Ondansetron 4 Mg/2 Ml Vial IVP 10/29/23 14:19 Q4H PRN PRN Nausea / Vomiting Sodium Chloride 0 ml 09/30/23 06:00 Normal Saline Flush 10 Ml Syr IV 10/29/23 23:59 PRN PRN Sodium Chloride 0 ml 09/30/23 06:00 Normal Saline 10 Ml Vial IJ 10/29/23 23:59 DIRECTED PRN Sterile Water 0 ml 09/30/23 06:00 Water,Injection,Sterile 10 Ml Vial IJ 10/29/23 23:59 DIRECTED PRN PFSH Active Problems Active Problems: Problem Status Onset Code Colitis K52.9 GERD (gastroesophageal reflux disease) K21.9 Gastritis K29.70 Screening for colon cancer Z12.11 Condyloma acuminata A63.0 Hypogonadism in male E29.1 History of adenomatous polyp of colon Z86.010 Tubular adenoma ~07/2020 D36.9 Recurrent sinusitis J32.9 Chronic ethmoidal sinusitis J32.2 Cholecystitis K81.9 Right upper quadrant pain R10.11 Biliary dyskinesia K82.8 Medical History Medical History Hypothyroidism History of fracture ORIF lt hand Allergic rhinitis Neuropathy Restless leg Chronic GERD Abdominal pain post prandial HTN (hypertension) CTS (carpal tunnel syndrome) Hyperlipidemia Hyperglycemia Surgical History Surgical History History of hand surgery bilat hand History of colonoscopy (~07/2020) History of recent maxillofacial surgery metal plate in jaw for severe underbite Personal history of spine surgery History of colonoscopy Tobacco Smoking/Tobacco Use Status: Current every day Tobacco Type: cigarettes Smoking packs per day: 1 Years smoked: 5 Alcohol Alcohol Intake: current Alcohol intake frequency: 3 or more drinks per day Alcohol type: wine and hard liquor Details: Consumes a little less than a fifth 5 days/wk after work Substance Use Substance use: Never Substance use type: does not use Details: last alcohol t-2 Vital Signs and Lab Results Vital Signs Most Recent Vital Signs in EMR: Temp Pulse Resp BP Pulse Ox 36.4 C L 96 H 16 152/92 H 96 09/30/23 09:05 09/30/23 09:05 09/30/23 09:05 09/30/23 09:05 09/30/23 09:05 Lab Results Blood Type / Crossmatch: No Data to Display Complete Blood Count: No Data to Display Complete Metabolic Panel: No Data to Display Liver Function Panel: No Data to Display Coagulation Panel: No Data to Display Cardiac Panel: No Data to Display Arterial Blood Gas: No Data to Display Venous Blood Gas: No Data to Display Pancreas Panel: No Data to Display Thyroid Panel: No Data to Display Infectious Disease: No Data to Display Blood Cultures: No Data to Display Toxicology Panel: No Data to Display Anesthesia Assessment and Plan Anesthesia History Personal History: No History of Anesthesia Complications Family History: No Family History of Anesthesia Complications Exercise Tolerance Exercise Tolerance: Metabolic Equivalents>4 Pertinent Negatives Pertinent Negatives: No Symptoms of GERD, No Major Cardiovascular Symptoms or C omplaints, No Major Pulmonary Symptoms or Complaints and No History of CVA/TIA Cardiac & Pulmonary Exam Cardiac Exam: Normal S1/S2 Heart Sounds Pulmonary Exam: Clear Bilateral Breath Sounds Implantable Cardiac Device Does patient have a Pacemaker or an ICD?: No Airway Exam Known Difficult Airway: No Mallampati Class: 2 Mouth Opening: Narrow (< 3cm) Thyromental Distance: Greater than 3 cm Neck Range of Motion: Full ROM Neck Circumference: Thick Teeth Condition: Normal Dentition ASA Classification ASA Score: ASA 2 Emergency Case?: No NPO Status NPO Status: NPO Clears >2 hours, Solids >8 hours Anesthesia Plan Resuscitation Status: Full Code Anesthesia Technique: General Anesthesia Airway Planned: Natural Airway Monitors Used: Standard Monitors Preoperative Comments:: 37 yo male for colo. Sig PMHx: HTN, GERD, hypothyroid, neuropathy. smoker, daily EtOH.
[2023-09-30 09:05] VITALS: BP 152/92; PULSE 96; RESP 16; TEMP 36.4; O2SAT 96
[2023-09-30] MEDS: Lactated Ringers 1,000 ML 80 ML IV (09:09)
[2023-09-30 10:06] VITALS: BMI 38.3
--- NOTE | 2023-09-30 10:49 | BOWEL_PTH ---
PATIENT: Chava Griffin LOC: [facility] U#:[id number] AGE/SX: 37/M ROOM: RE09/30/[address]: Cornelius Jim MD : 1985 BED: DIS: 09/30/2023 SPEC #: [id number] RECD: 09/30/23 13:05 STATUS: UVALDO RE #: [id number] PAVAN: 09/30/23 10:[address]: Cornelius Jim DEPT: Surgical Specimen RECD BY: Liza Grijalva ENTERED: 09/30/23 13:06 SP TYPE: Bowel OTHR DR: Tita Arreguin Tissues: 1 - BIOPSY BOWEL Procedures: GROSS AND MICRO LEVEL 4 Comments: [id number]
[2023-09-30 10:57] VITALS: BP 115/78; PULSE 88; RESP 16; TEMP 36.1; O2SAT 95
[2023-09-30 11:25] VITALS: BP 138/90; PULSE 87; RESP 16; TEMP 36.4; O2SAT 99
--- NOTE | 2023-09-30 11:33 | W.ANESPOSTOP ---
Postoperative Evaluation Date, Time and Location Date Performed: 09/30/23 Time Performed: 11:15 Patient Location: Day Surgery Unit Vital Signs Most Recent Imported Vital Signs: Most Recent Vital Signs Temp Pulse Resp BP Pulse Ox 36.1 C L 88 16 115/78 95 09/30/23 10:57 09/30/23 10:57 09/30/23 10:57 09/30/23 10:57 09/30/23 10:57 Pain Score Most Recent Pain Score: Most Recent Pain Score Pain Level 0 09/30/23 10:57 Assessment Mental Status: Awake (Alert & Oriented to Patient Baseline) Airway and Respiratory Function: Patent airway with normal (patient baseline) respiratory exam Cardiovascular Function: Hemodynamically Stable Hydration Status: Adequately Hydrated Nausea & Vomiting: No Nausea or Vomiting Pain: Pt. Denies Any Pain Peripheral Nerve Block: Patient did not receive a nerve block
== END 2023-09-30 11:42 | disposition home or self-care (01) ==
LOC: SUR 08:46
PROVIDERS: PCP Internal Medicine; Visit Provider Surgery
PROC: 0DJD8ZZ Inspection of Lower Intestinal Tract, Via Natural or Artificial Opening Endoscopic (ICD-10-PCS; CPT 45378; principal; 2023-09-30 10:30)
DX: K52.9 Noninfective gastroenteritis and colitis, unspecified (principal); F17.210 Nicotine dependence, cigarettes, uncomplicated; I10 Essential (primary) hypertension; K21.9 Gastro-esophageal reflux disease without esophagitis; F10.90 Alcohol use, unspecified, uncomplicated; K57.30 Diverticulosis of large intestine without perforation or abscess without bleeding
CPT/HCPCS: 45380; 88305; J2704